=== PATIENT | male | born 1985 | race Caucasian/White ===

== ENCOUNTER 2021-02-18 09:09 | Emergency (ER) | payer OTHER ==
[2021-02-18] MEDS ORDERED: MEDROL 4MG DOSEP4 MG PO (11:36)
[2021-02-18] MEDS ORDERED: TRAMADOL HCL50 MG PO (11:36)
== END 2021-02-18 12:00 | disposition home or self-care (01) ==
LOC: FER 09:09
DX: M51.36 Other intervertebral disc degeneration, lumbar region (principal); M48.061 Spinal stenosis, lumbar region without neurogenic claudication; F17.200 Nicotine dependence, unspecified, uncomplicated; Z87.81 Personal history of (healed) traumatic fracture
CPT/HCPCS: 72131; J1040